=== PATIENT | male | born 1995 | race Caucasian/White ===

== ENCOUNTER 2018-02-22 12:43 | Emergency (ER) | payer OTHER ==
[~2018-02-22] VITALS: Ht 172.7 cm; Wt 80.0 kg
[~2018-02-22 12:43] MED LIST: Z.0.NO CURRENT MEDS
[2018-02-22 12:52] VITALS: BP 153/69; PULSE 94; RESP 17; TEMP 98.1; O2SAT 100
--- NOTE | 2018-02-22 14:52 | PD ---
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 Patient was seen yesterday at [facility] urgent care, with diagnosis of distal fibular fracture. Splint was placed at that time. Patient was instructed to follow-up with an orthopedist. Patient is currently on crutches and is here mainly due to the discomfort and numbness that he has developed since last night in the right medial foot and ankle. He states no numbness or tingling in the toes themselves. He has no other acute complaints. No known drug allergies. PFSH Past Medical History Diminished Hearing: No Immunizations Current: Yes Social History Alcohol Use: No Tobacco Use: No Substance Use: No Allergies-Medications (Allergen,Severity, Reaction): Coded Allergies: No Known Allergies (Verified , 02/08/17) Reported Meds & Prescriptions Reported Meds & Active Scripts Active Reported No Current Meds (Miscellaneous Medication) [facility] of Systems Except as stated in HPI: all other systems reviewed are Neg General / Constitutional: No: Fever Eyes: No: Visual changes HENT: No: Headaches Cardiovascular: No: Chest Pain or Discomfort Respiratory: No: Shortness of Breath Gastrointestinal: No: Abdominal Pain Genitourinary: No: Dysuria Musculoskeletal: Positive: Arthralgias, Limited ROM, Pain Skin: No Rash Neurologic: Positive: Paresthesia, No: Weakness Psychiatric: No: Depression Endocrine: No: Polydipsia Hematologic/Lymphatic: No: Easy Bruising Physical Exam Narrative GENERAL: Patient appears in no obvious distress. SKIN: Warm and dry. Normal color. Normal turgor. Splint is removed, and there is an area of erythema without skin breakdown to the right medial malleolus consistent with early pressure wound. HEAD: Atraumatic. Normocephalic. EYES: Pupils equal and round. No scleral icterus. No injection or drainage. ENT: No nasal bleeding or discharge. Mucous membranes pink and moist. NECK: Trachea midline. No JVD. CARDIOVASCULAR: Regular rate and rhythm. RESPIRATORY: No accessory muscle use. Clear to auscultation. Breath sounds equal bilaterally. GASTROINTESTINAL: Abdomen soft, non-tender, nondistended. Hepatic and splenic margins not palpable. MUSCULOSKELETAL: Extremities without clubbing, cyanosis, or edema. No obvious deformities. Right ankle swollen and tender along the lateral malleolus consistent with previous fracture. NEUROLOGICAL: Awake and alert. No obvious cranial nerve deficits. Motor grossly within normal limits. Five out of 5 muscle strength in the arms and legs. Normal speech. PSYCHIATRIC: Appropriate mood and affect; insight and judgment normal. Data Data Last Documented VS Vital Signs Date Time Temp Pulse Resp B/P (MAP) Pulse Ox O2 Delivery O2 Flow Rate FiO2 02/22/18 12:52 98.1 94 17 153/69 (97) 100 Orders Orders Splinting (02/22/18 ) MDM Medical Decision Making Medical Screen Exam Complete: Yes Emergency Medical Condition: Yes Medical Record Reviewed: Yes Differential Diagnosis Right distal fibula fracture. Splint issue. Need for orthopedic follow-up Narrative Course Patient is medically stable at time of exam. X-rays are reviewed showing a nondisplaced distal fibular fracture, not involving the mortise. Splint is replaced by orthotecs. Patient to continue crutches and nonweightbearing. Elevate as much as possible, and use ice as discussed. Patient is to call Dr. Sewell, the orthopedic on-call for follow-up in the next week. Patient could follow-up with Dr. Jolly, the bank teller machine mechanic if that is preferred by the patient. Diagnosis Primary Impression: Closed fracture of right distal fibula Qualified Codes: S82.831D - Other fracture of upper and lower end of right fibula, subsequent encounter for closed fracture with routine healing Additional Impression: Cast discomfort Referrals: Mg Sewell Jr., MD, [place] DPM Patient Instructions: Crutch Instructions (ED), General Instructions, Splint Care (ED) Departure Forms: School Release, Please excuse from school until (free text option): No weightbearing on right leg until cleared by orthopedist or bank teller machine mechanic. Work Release Enter return to work date: Feb 22, 2018 Special Instructions: No weightbearing on right leg until cleared by orthopedist or bank teller machine mechanic. Additional Instructions: Patient is medically stable at time of exam. X-rays are reviewed showing: There is oblique fracture through the distal fibula. This is not significantly displaced. There is lateral soft tissue swelling. The ankle is normally aligned. The distal tibia and talus appear intact. Splint is replaced by orthotecs. Patient to continue crutches and nonweightbearing. Elevate as much as possible, and use ice as discussed. Patient is to call Dr. Sewell, the orthopedic on-call for follow-up in the next week. Patient could follow-up with Dr. Jolly, the bank teller machine mechanic if that is preferred by the patient. Med/Other Pt SpecificInfo: No Change to Meds Disposition: 01 DISCHARGE HOME Condition: Stable Carson Barbour Feb 22, 2018 14:52
== END 2018-02-22 16:03 | disposition home or self-care (01) ==
LOC: NEPD 12:43
DX: S82.831D Other fracture of upper and lower end of right fibula, subsequent encounter for closed fracture with routine healing (principal)
CPT/HCPCS: 29515